=== PATIENT | female | born 1960 | race Caucasian/White ===

== ENCOUNTER 2020-12-22 15:49 | Emergency (ER) | payer OTHER ==
[~2020-12-22 15:49] MED LIST: Percocet 5-3251 EACH PO; Zofran Odt4 MG SL
== END 2020-12-22 17:27 | disposition left against medical advice (07) ==
LOC: ER 15:49
DX: Z53.21 Procedure and treatment not carried out due to patient leaving prior to being seen by health care provider (principal)

== ENCOUNTER 2023-03-30 09:24 | Day surgery (SDC) | payer OTHER ==
[2023-03-30] VITALS (16 sets, daily range): BP systolic 104–123; BP diastolic 61–79
[~2023-03-30] VITALS: Ht 165.1 cm; Wt 74.9 kg
[~2023-03-30 09:24] MED LIST changes: +DERMACINRX FOL1 EAC2 PO; +DHEA50 M2 PO; +DOTTI VAG; +KRILL OIL500 MG PO; +PROBIOTIC1 EA14 PO; +PROG100 PO
--- NOTE | 2023-03-30 09:40 | NUR ---
Ambulatory in Day Surgery Patient confirms NPO status and agrees with scheduled surgery. Pre-Op teaching done. Pt verbalizes understanding. History, Chart, Medications and Allergies reviewed before start of procedure.
--- NOTE | 2023-03-30 10:56 | NUR ---
03/30/23 1056 Shaila Worley NO PREOP ANTIBIOTICS ORDERED PER .
--- NOTE | 2023-03-30 12:51 | NUR ---
PATIENT ARRIVED FROM PACU TODAY AT 1245. POD 0 VAGINAL PROLAPSE REPAIR PATIENT IS A&OX4. VS ARE WNL AND IS ON 2L NC WITH >90% OXYGEN SATS. PATIENT DENIES PAIN AT THIS TIME. SHE HAS A DE SANTIAGO IN WITH YELLOW URINE OUTPUT PER GRAVITY. PATIENT HAS VAGINAL PACKING THAT IS INTACT. SHE IS TOLERATING SMALL AMOUNTS OF PO INTAKE. DENIES NAUSEA OR VOMITING. SHE IS LAYING IN BED WITH CALL LIGHT IN REACH AND AT BEDSIDE.
--- NOTE | 2023-03-30 15:38 | NUR ---
SHIFT SUMMARY: POD 0 PROLAPSE REPAIR NO SIGNIFICANT CHANGES THROUGHOUT SHIFT. PATIENT IS A&OX4. VS ARE WNL AND IS ON RA. PAIN IS MANAGED SO FAR WITH PO IBUPROFEN. DE SANTIAGO IS STILL IN AND IS DRAINING PER GRAVITY YELLOW URINE OUTPUT. SHE IS TOLERATING PO INTAKE WITH NO NAUSEA OR VOMITING. SHE IS LAYING IN BED WITH CALL LIGHT IN REACH. FAMILY AT BEDSIDE. THE PLAN IS TO CONTINUE PAIN MANAGEMENT AND SHE WILL HAVE HER DE SANTIAGO AND PACKING TAKEN OUT AFTER [address] CORONA ORDERS.
--- NOTE | 2023-03-30 18:23 | NUR ---
PATIENTS DE SANTIAGO AND PACKING WERE JUST REMOVED PER DR. RIVERA'S ORDERS TO REMOVE AFTER 1800. PATIENT TOLERATED IT WELL. A FANNY PAD AND HER OWN UNDERWEAR WERE PLACED AFTERWARDS THAT IS C/D/I. PATIENT IS NOW LAYING IN BED WITH CALL LIGHT IN REACH AND AT BEDSIDE. DR. RIVERA STATED ON THE PHONE IF SHE WAS ABLE TO VOID SPONTANEOUSLY AFTER DE SANTIAGO WAS REMOVED AND AN HOUR AFTER THE PACKING WAS REMOVED THAT SHE DIDN'T SATURATE A PAD AFTER AN HOUR THAT SHE CAN BE DISCHARGED HOME.
--- NOTE | 2023-03-30 20:24 | NUR ---
provided pt and spouse with dischage instructions which they state understanding of, printed education, jesus manuel pads, removed peripheral iv WNL. pt escorted to awaiting vehicle via wheelchair while carrying her belongings.
== END 2023-03-30 20:26 | disposition home or self-care (01) ==
LOC: ORSCMMR 09:24 → ORD 10:30 → SURS 12:36 → ORSCMMR 20:26
PROVIDERS: Obstetrics & Gynecology
PROC: 0JQC0ZZ Repair Pelvic Region Subcutaneous Tissue and Fascia, Open Approach (ICD-10-PCS; principal; 2023-03-30 10:30)
DX: N81.89 Other female genital prolapse (principal); N18.9 Chronic kidney disease, unspecified; Z79.899 Other long term (current) drug therapy
CPT/HCPCS: A9270; J1100; J1885; J2250; J2371; J2405; J2704; J3010; J7120

== ENCOUNTER → 2023-09-04 | Outpatient (CLI) | payer OTHER | END | disposition home or self-care (01) | LOC: LAB SHORT 10:20 → LAB 10:20 | DX: N39.0 Urinary tract infection, site not specified (principal) | CPT/HCPCS: 87077; 87086; 87186 ==